=== PATIENT | female | born 2000 | race Caucasian/White ===

== ENCOUNTER 2024-05-06 12:21 | Outpatient (CLI) | payer BC ==
[2024-05-06] MEDS ORDERED: Sodium Bicarbonate 0.5 MEQ/ML SDV 10 ML ONE (13:09)
[2024-05-06] MEDS ORDERED: Iopamidol 30 ML ONE (13:10)
[2024-05-06 13:15] LABS: BHCG - Serum Negative (NEGATIVE); Pregs Control Background? CLEAR/WHITE (CLR/WHITE); Pregs Control Bar Appear? YES (CONTROL BAR)
== END 2024-05-06 12:22 | disposition home or self-care (01) ==
LOC: RAD 12:21
PROVIDERS: ATTEND Advanced Practice Midwife
DX: Z32.00 Encounter for pregnancy test, result unknown (principal); N85.4 Malposition of uterus; Z78.9 Other specified health status
CPT/HCPCS: 36415; 58340; 74740; 84703; Q9967